=== PATIENT | female | born 1995 | race Caucasian/White ===

== ENCOUNTER 2018-05-06 22:42 | Emergency (ER) | payer MEDICAID, SELFPAY ==
[2018-05-06 22:44] VITALS: BP 105/65; PULSE 73; RESP 14; TEMP 36.4; O2SAT 99; BMI 20.4
--- NOTE | 2018-05-07 00:36 | US_ITS ---
STUDY: FIRST TRIMESTER OBSTETRICAL ULTRASOUND REASON FOR EXAM: Female, 22 years old. patient with cramping and low back pain for one week. LMP: The colon TECHNIQUE: Transvaginal PRIOR ULTRASOUND: None. FINDINGS: There is visualization of a single gestational sac in a normal intrauterine position. The mean sac diameter (MSD) measures 3.9 cm, indicating an estimated gestational age (EGA) of 8 weeks, 2 days. The gestational sac shape is within normal limits. There is a hypoechoic area adjacent to the gestational sac measuring about 2.5 cm consistent with subchorionic hemorrhage. There is a visualized yolk sac. The yolk sac measures 5.4 mm. The placenta is non-visualized. There is visualization of a live embryo. The crown-rump length (CRL) measures 21 mm, indicating an estimated gestational age (EGA) of 8 weeks, 5 days. There is demonstrated cardiac activity with a heart rate of 151 bpm. The estimated gestation age (EGA) by LMP is unknown. The estimated gestation age (EGA) by US is 8 weeks, 4 days. The estimated date of delivery (MARCO A) by US is 12/13/2018. The uterus measures 9.8 x 7.7 x 5.6 cm. There is no demonstrated uterine fibroid. The cervix is closed. The right ovary measures 3.1 x 2.9 x 1.7 cm. There is no right ovarian cyst. There is no visualized right adnexal mass or complex lesion. The left ovary measures 2.7 x 2.6 x 1.6 cm. There is a small cyst/prominent follicle in the left ovary measuring about 1.5 cm. There is no visualized left adnexal mass or complex lesion. There is no fluid in the cul de sac. US/Transvaginal w/Preg US IMPRESSION: Single live intrauterine fetus with an estimated gestational age of 8 weeks and 4 days. MARCO A is 12/13/2018. Subchorionic hemorrhage. Close follow-up examination is recommended. Electronically Signed: George Roland MD at 2:58 EDT Tel , Service support ,
--- NOTE | 2018-05-07 00:39 | ED.VISSUMM ---
- ER Visit Summary Date of Service: 05/07/18 Chief Complaint: Abdominal pain History of Present Illness: The patient is a 22 F with abdominal pain. She is 9 weeks . She is not sure if she had an ultrasound for this . She denies any bleeding or discharge. Denies any urinary symptoms. Denies any other GI symptoms. Denies any fevers. Physical Examination: Afebrile and vital signs unremarkable. Alert and oriented. No acute distress. Skin appears normal. Heart regular. Lungs clear. Back nontender. Abdomen is tender in the left lower quadrant and left pelvic region. No guarding or rebound. Test Results: We will check labs, urinalysis, and ultrasound. Emergency Department Course and Treatment: Treated with morphine while awaiting results of labs, urine, and ultrasound. Hemoglobin 11.2. Chem panel normal. Signs of urinary tract infection. Ultrasound showed a live intrauterine 8 weeks 4 days. There is a subchorionic hemorrhage. Close follow-up is recommended. Patient was prescribed Macrobid. Follow-up with OB tomorrow. Treatment Plan: As above Disposition: Discharged Impression: 1. 2. Pelvic pain 3. UTI This note was generated with [employer] software. It may contain incorrect words, spelling, and punctuation that were not noted in review of the chart prior to signing ED Disposition - Plan for ED Patient: Chief Complaint: Referrals: Care Physician,No Primary [Primary Care Provider] -
[2018-05-07 01:21] LABS: Bacteria 0 SEEN /hpf (None Seen); Mucous, Urine 0 SEEN /hpf (<or=2+); Red Blood Cells-Urine 0 SEEN /hpf (0-5)
[2018-05-07 01:24] LABS: Absolute Lymphocyte Count 2.25 X10^3/ul (0.83-4.51); Absolute Neutrophil Count 6.5 X10^3/uL (2.0-7.7); Basophil# 0.02 X10^3/uL; Basophil% 0.2 % (0-1); Color, Urine Yellow (Yellow); Eosinophil# 0.14 X10^3/uL; Eosinophils% 1.5 % (0-5); Glucose, Dipstick Normal (Normal); Hematocrit 32.8 % (37-47); Hemoglobin 11.2 g/dl (12.0-15.0); Ketone-Dipstick 5 mg/dl (Negative); Leukocyte Esterase-Dipstick 100 /ul (Negative); Lymphocyte # 2.25 X10^3/ul (4.0); Lymphocyte % 23.4 % (19-41); Mean Corp Hgb Conc 34.1 g/gl (32-36); Mean Corpuscular Hgb 29.6 pg (27.0-32.0); Mean Corpuscular Volume 86.5 fL (81-99); Mean Platelet Vol. 11.3 fl (6.2-12.0); Monocyte# 0.67 X10^3/uL; Neutrophil # 6.54 X10^3/uL (2.7-7.7); Neutrophil % 67.8 % (47-70); Nitrite-Dipstick Negative (Negative); Occult Blood-Urine Negative /ul (Negative); Platelet Count 207 K/mm3 (150-450); Protein-Dipstick 15 mg/dl (Negative); RBC Distribution Width CV 13.3 % (11.6-14.6); Red Blood Count 3.79 M/mm3 (4.2-5.4); Specific Gravity, Urine 1.025 (1.002-1.030); Urine Clarity Sl. Cloudy (Clear); Urine Urobilinogen 4 mg/dl (Normal); Urine pH 6.5 (5.0 - 8.0); White Blood Count 9.6 K/mm3 (4.4-11.0)
[2018-05-07 01:26] LABS: Urine Bilirubin Dipstick 1 mg/dL (Negative)
[2018-05-07 01:30] LABS: Squamous Epithelial Cells - UA > 100 SEEN /hpf (5-10)
[2018-05-07 01:31] LABS: Amorphous Sediment 1+; POSITIVE COUNT NO; POSITIVE DIFFERENTIAL NO; POSITIVE MORPHOLOGY NO; White Blood Cells 10-25 SEEN /hpf (0-5)
[2018-05-07] MEDS: Morphine 4 MG/ML Syringe IV (01:37)
[2018-05-07 01:53] LABS: Anion Gap 4 (5-15); BUN 6 mg/dL (7-18); BUN/Creat Ratio 8.5 RATIO (10-20); Calcium,Total 8.3 mg/dL (8.5-10.1); Chloride 109 mmol/L (98-107); Creatinine, Serum 0.71 mg/dL (0.55-1.02); EST Glomerular Filtration Rate 107 mL/min (>60); Est Glom Filt Rate - Afr Amer 130 mL/min (>60); Glucose 97 mg/dL (74-106); Potassium 3.5 mmol/L (3.5-5.1); Sodium Level 139 mmol/L (136-145)
[2018-05-07 02:08] LABS: hCG Titer Quant., Serum 91873 mIU/mL (<9 non-preg)
--- NOTE | 2018-05-07 03:52 | ED.DEP ---
ED Disposition - Plan for ED Patient: Chief Complaint: Instructions: ED UTI Cystitis Female Prescriptions: Nitrofurantoin Macrocrystals [Macrobid] 100 mg PO Q12 #14 cap Referrals: Care Physician,No Primary [Primary Care Provider] -
[2018-05-07 04:03] VITALS: BP 117/80; PULSE 81; RESP 18; O2SAT 97
== END 2018-05-07 04:05 | disposition home or self-care (01) ==
PROVIDERS: Emergency Provider Emergency Medicine
DX: O23.41 Unspecified infection of urinary tract in pregnancy, first trimester (principal); O26.891 Other specified pregnancy related conditions, first trimester; R10.2 Pelvic and perineal pain; O99.331 Smoking (tobacco) complicating pregnancy, first trimester; Z3A.09 9 weeks gestation of pregnancy
CPT/HCPCS: 76817; 80048; 81001; 84702; 85025; 96374; 99283; A4216

== ENCOUNTER 2018-06-13 23:54 | Emergency (ER) | payer MEDICAID, SELFPAY ==
[2018-06-13 23:55] VITALS: BP 90/49; PULSE 86; RESP 16; TEMP 37; O2SAT 100; BMI 18.8
[2018-06-14] MEDS: Dicyclomine 10 MG Capsule 20 MG PO (00:41)
[2018-06-14] MEDS: Ondansetron ODT 4 MG Tablet 8 MG PO (00:41)
--- NOTE | 2018-06-14 01:32 | ED.DCSUM_ITS ---
History of Present Illness Chief Complaint: Abd Pain Informant: Patient Onset: Days - 2 Context: Gradual Onset Timing: Intermittent Quality: sharp Location: periumbilical abd Current Severity: Moderate Maximum Severity: Moderate Worsened by: nothing Relieved by: nothing Associated Symptoms: nausea. nonbloody nonmelanotic diarrhea 2x/day. no fevers, vomiting. Narrative: Patient states she is 2 months . She had an ultrasound in the ER here during her visit last month. She had a positive home test and in [facility] in addition to her ER visit here. The ultrasound she had showed a single live intrauterine . She has had no vaginal discharge, bleeding, or other vaginal symptoms. No urinary symptoms. No recent antibiotics or suspicious food ingestion. No known sick contacts with similar. Past Medical History - Allergies and Home Meds Allergies/Adverse Reactions: Allergies cefuroxime axetil [From Ceftin] Allergy (Verified 05/06/18 22:47) Hives pseudoephedrine HCl [From Sudafed] Allergy (Verified 05/06/18 22:47) Other Primary Care Physician: Care Physician,No Primary [Primary Care Provider] - Past Medical History: None Surgical History: no surgical history Smoking Status: Current every day smoker Drugs: None Review of Systems All systems negative except as indicated General: Reports: Malaise. Denies: Chills, Fever Gastrointestinal: Reports: Abdominal pain, Nausea, Diarrhea. Denies: Vomiting, Melena, Hematochezia Genitourinary: Denies: Dysuria, Hematuria, Frequency Musculoskeletal: Denies: Myalgias, Arthralgias Skin: Denies: Rash Physical Exam Vital Signs/Narrative: Vital Signs Temp Pulse Resp BP Pulse Ox 06/13/18 23:55 98.6 F 86 16 90/49 L 100 Inital Vital Signs reviewed: Yes General: Well nourished, Well developed Head: Normocephalic, Atraumatic Eyes: Perrl, EOMI ENT: Moist mucous membranes, No rhinorrhea Cardiovascular: Regular rate, Regular rhythm, No murmurs Respiratory: No distress, CTA bilaterally, Chest nontender Abdomen: Soft, Nondistended, Normal bowel sounds, No masses, Tender - epigastric , periumbilical, and throughout lower abd. Negative for: Guarding, Rebound tenderness Back: Nontender, Normal Inspection. Negative for: CVA tenderness Extremities: Nontender, No edema Skin: Normal color, No rash Neurological: Alert, Oriented x3, Cranial nerves II-XII grossly intact, Normal Strength, Normal Sensation, Normal Gait Psychological: Normal affect Diagnostic/Tx/Re-eval - Medical Decision Making Patient states she has been drinking plenty of fluids and appears hydrated with normal vital signs. I reviewed her ultrasound from about 5 weeks ago, she had a single live intrauterine that was around 8-8.5 weeks at that time. She was notified that she is probably 13-14 weeks , no further workup for that is necessary at this time I do not think she has an ectopic . She was given Zofran and Bentyl and felt a lot better so she was given prescriptions for both, which should be safe during , advised to follow -up. Also given a prescription for vitamins. ED Disposition - Plan for ED Patient: Disposition: Home or Assisted Living Chief Complaint: Abd Pain Diagnosis: Enteritis, First trimester Instructions: ED Diarrhea Viral Prescriptions: Ondansetron [Zofran Odt] 8 mg PO Q8H PRN PRN #12 tab PRN Reason: Nausea Dicyclomine HCl [Bentyl] 20 mg PO TIDAC PRN #20 cap PRN Reason: abdominal pain Vit No.130/Iron/FA [ Vitamins] 1 ea PO DAILY #30 tab Referrals: Care Physician,No Primary [Primary Care Provider] - Raj Ramesh III, MD [STAFF PHYSICIAN] - 3-5 Days if not improving Hue Neri [STAFF PHYSICIAN] - (for [employer])
[2018-06-14 01:36] VITALS: RESP 14
== END 2018-06-14 01:37 | disposition home or self-care (01) ==
PROVIDERS: Emergency Provider Emergency Medicine
DX: O26.891 Other specified pregnancy related conditions, first trimester (principal); K52.9 Noninfective gastroenteritis and colitis, unspecified; Z3A.13 13 weeks gestation of pregnancy; O99.331 Smoking (tobacco) complicating pregnancy, first trimester
CPT/HCPCS: 99282

== ENCOUNTER 2018-07-04 18:50 | Emergency (ER) | payer OTHER, SELFPAY ==
[2018-07-04 18:51] VITALS: BP 98/61; PULSE 91; RESP 16; TEMP 36.8; O2SAT 100; BMI 20.5
--- NOTE | 2018-07-04 19:40 | ED.VISSUMM ---
- ER Visit Summary Date of Service: 07/04/18 Chief Complaint: [Back and abdomen injury] History of Present Illness: The patient is a 22 F [presents the emergency department complaint of pain in her back and abdomen after sustaining an injury at work. Patient states that she was lifting a tote of O-rings when she felt sudden onset of pain in her left low back and lower left abdomen. Patient is 12 weeks . Patient denies any vaginal bleeding. Patient complains of pain with movement. She denies any pain radiating down the legs. She denies any change in bowel or bladder function.] Physical Examination: [HEENT-PERRLA, EOMI. Cranial nerves II through XII grossly intact. TMs clear. Mucous membranes moist. No adenopathy. Cardiovascular-regular rate and rhythm without murmur or ectopy Lungs-clear to auscultation, chest wall stable without crepitus or subcu emphysema Abdomen-normoactive bowel sounds, soft. Patient does have tenderness palpation over left lower quadrant and left abdominal wall obliques. Patient has no real tenderness over the uterus and she is gravid. Back exam-patient has tenderness over the left lumbar paraspinal musculature. No real tenderness in the midline. She has negative straight leg raises. Patient has normal deep tendon reflexes of plus out of 4 bilaterally. Normal sensation light touch Extremities-intact ?4, normal range of motion, normal pulses, atraumatic] Test Results: [None indicated] Emergency Department Course and Treatment: [Patient refused any medication the emergency department] Treatment Plan: [Patient advised use Tylenol for discomfort and she was given work restrictions] Disposition: [Discharged home in stable condition] Impression: [Lumbar strain Abdominal wall strain] This note was generated with [employer] dictation software. It may contain incorrect words, spelling, and punctuation that were not noted in review of the chart prior to signing ED Disposition - Plan for ED Patient: Chief Complaint: Other, Pain/Inj Referrals: Care Physician,No Primary [Primary Care Provider] -
--- NOTE | 2018-07-04 19:43 | ED.DEP ---
ED Disposition - Plan for ED Patient: Chief Complaint: Other, Pain/Inj Instructions: ED Sprain Strain Lumbar, ED Strain Abdominal Muscle Referrals: Care Physician,No Primary [Primary Care Provider] - Corporate,[facility] [GROUP OF PHYSICIANS] - 3-5 Days
== END 2018-07-04 19:51 | disposition home or self-care (01) ==
PROVIDERS: Emergency Provider Emergency Medicine
DX: O9A.211 Injury, poisoning and certain other consequences of external causes complicating pregnancy, first trimester (principal); S39.012A Strain of muscle, fascia and tendon of lower back, initial encounter; S39.011A Strain of muscle, fascia and tendon of abdomen, initial encounter; X50.9XXA Other and unspecified overexertion or strenuous movements or postures, initial encounter; Y93.89 Activity, other specified; Y92.9 Unspecified place or not applicable; Y99.0 Civilian activity done for income or pay; O99.331 Smoking (tobacco) complicating pregnancy, first trimester; Z3A.12 12 weeks gestation of pregnancy
CPT/HCPCS: 99282

== ENCOUNTER 2018-09-16 23:14 | Emergency (ER) | payer MEDICAID, SELFPAY ==
[2018-09-16 23:15] VITALS: BP 110/55; PULSE 93; RESP 18; TEMP 37; O2SAT 97; BMI 23.3
[2018-09-16 23:27] VITALS: RESP 16
--- NOTE | 2018-09-16 23:27 | ED.DCSUM_ITS ---
- ER Visit Summary Date of Service: 09/16/18 Chief Complaint: Tooth chipping History of Present Illness: The patient is a 23 F with right-sided dental problems for the last 9 months or so. Tonight one tooth keeps chipping and is painful. She took Tylenol approximately 30 minutes prior to arrival. She sta shahnaz she is going to see her dentist tomorrow as a walk-in to get him to do something with her tooth. She is currently 7 months . Physical Examination: Vital signs unremarkable. Patient standing at bedside no acute distress. Head neck examination was no facial edema or erythema. Intraoral examination reveals right mandibular second premolar to be broken and decayed. There is minimal gum edema. There is no trismus. Uvula is midline. Her upper teeth of all previously been pulled. Remainder of exam is unremarkable other than gravid uterus. Test Results: [] Emergency Department Course and Treatment: Patient did take Tylenol just before arrival. She is attempted continue this every 6 hours. She will be given Pen- Vee K, first dose given here. Treatment Plan: [] Disposition: Discharge Impression: Odontalgia This note was generated with [employer] dictation software. It may contain incorrect words, spelling, and punctuation that were not noted in review of the chart prior to signing ED Disposition - Plan for ED Patient: Chief Complaint: Dental Referrals: Care Physician,No Primary [Primary Care Provider] -
--- NOTE | 2018-09-16 23:27 | ED.DEP ---
ED Disposition - Plan for ED Patient: Disposition: Home or Assisted Living Chief Complaint: Dental Instructions: ED Tooth Pain Prescriptions: Penicillin V Potassium 500 mg PO 4X/DAY #40 tablet Additional Instructions: Follow-up with your dentist as soon as possible.
[2018-09-16] MEDS: Penicillin Vk 250 MG Tablet 500 MG PO (23:35)
[2018-09-16 23:38] VITALS: BP 106/52; PULSE 94; RESP 16; O2SAT 98
== END 2018-09-16 23:39 | disposition home or self-care (01) ==
LOC: ED 23:36
PROVIDERS: Emergency Provider Emergency Medicine
DX: O99.613 Diseases of the digestive system complicating pregnancy, third trimester (principal); S02.5XXA Fracture of tooth (traumatic), initial encounter for closed fracture; K02.9 Dental caries, unspecified; X58.XXXA Exposure to other specified factors, initial encounter; Y93.9 Activity, unspecified; Y92.9 Unspecified place or not applicable; Y99.9 Unspecified external cause status; O99.333 Smoking (tobacco) complicating pregnancy, third trimester; Z3A.00 Weeks of gestation of pregnancy not specified
CPT/HCPCS: 99282

== ENCOUNTER 2018-09-29 20:30 | Outpatient (CLI) | payer MEDICAID, SELFPAY ==
[2018-09-29 21:16] VITALS: BMI 23.3
[2018-09-29 21:23] LABS: Color, Urine Yellow (Yellow); Glucose, Dipstick Normal (Normal); Ketone-Dipstick Negative (Negative); Leukocyte Esterase-Dipstick 500 /ul (Negative); Nitrite-Dipstick Negative (Negative); Occult Blood-Urine 10 /ul (Negative); Protein-Dipstick 15 mg/dl (Negative); Specific Gravity, Urine 1.015 (1.002-1.030); Urine Bilirubin Dipstick Negative (Negative); Urine Clarity Sl. Cloudy (Clear); Urine Urobilinogen 1 mg/dl (Normal); Urine pH 6.5 (5.0 - 8.0)
[2018-09-29 21:30] LABS: Hematocrit 28.2 % (37-47); Hemoglobin 9.6 g/dl (12.0-15.0); Mean Corpuscular Hgb 29.3 pg (27.0-32.0); Mean Platelet Vol. 10.9 fl (6.2-12.0); Platelet Count 213 K/mm3 (150-450); RBC Distribution Width CV 13.5 % (11.6-14.6); RBC Distribution Width SD 41.3 fl (35.1-43.9); Red Blood Count 3.28 M/mm3 (4.2-5.4); White Blood Count 9.7 K/mm3 (4.4-11.0)
[2018-09-29 21:34] LABS: Scan Indicated on CBC? Y/N NO
[2018-09-29 21:40] LABS: White Blood Cells 50-100 SEEN /hpf (0-5)
[2018-09-29 21:41] LABS: Bacteria 2+ /hpf (None Seen); Mucous, Urine RARE /hpf (<or=2+); Red Blood Cells-Urine 5-10 SEEN /hpf (0-5); Squamous Epithelial Cells - UA 25-50 SEEN /hpf (5-10); Trichomonas 0-5 SEEN /hpf (None Seen)
[2018-09-29 21:44] LABS: ALB/GLOB Ratio 0.7 RATIO (0.9-2.4); AST(SGOT) 16 U/L (15-37); Alanine Aminotransfer ALT/SGPT 16 U/L (13-56); Albumin, Serum 2.4 g/dL (3.2-5.0); Alkaline Phosphatase 111 U/L (45-117); Anion Gap 9 (5-15); BUN 10 mg/dL (7-18); Calcium,Total 7.8 mg/dL (8.5-10.1); Chloride 109 mmol/L (98-107); Creatinine, Serum 0.56 mg/dL (0.55-1.02); EST Glomerular Filtration Rate 142 mL/min (>60); Est Glom Filt Rate - Afr Amer 171 mL/min (>60); Estimated Creatinine Clearance 115.88 ml/min; Globulin 3.5 g/dL (2.2-4.2); Glucose 88 mg/dL (74-106); Potassium 2.9 mmol/L (3.5-5.1); Protein, Total 5.9 g/dL (6.4-8.2); Sodium Level 139 mmol/L (136-145)
[2018-09-29] MEDS: Ondansetron ODT 4 MG Tablet PO (22:21)
--- NOTE | 2018-12-06 15:46 | OB.TRI.HP_ITS ---
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 Allergies cefuroxime axetil [From Ceftin] Allergy (Verified 09/16/18 23:17) Hives pseudoephedrine HCl [From Sudafed] Allergy (Verified 09/16/18 23:17) Other Laboratory Studies: Laboratory Tests 09/29/18 09/29/18 09/29/18 Range/Units 21:10 21:10 21:00 WBC 9.7 (4.4-11.0) K/mm3 RBC 3.28 L (4.2-5.4) M/mm3 Hgb 9.6 L (12.0-15.0) g/dl Hct 28.2 L (37-47) % MCV 86.0 (81-99) fL MCH 29.3 (27.0-32.0) pg MCHC 34.0 (32-36) g/gl RDW 13.5 (11.6-14.6) % RDW Differential 41.3 (35.1-43.9) fl Plt Count 213 (150-450) K/mm3 MPV 10.9 (6.2-12.0) fl Sodium 139 (136-145) mmol/L Potassium 2.9 L (3.5-5.1) mmol/L Chloride 109 H (98-107) mmol/L Carbon Dioxide 21.0 (21.0-32.0) mmol/L Anion Gap 9 (5-15) BUN 10 (7-18) mg/dL Creatinine 0.56 (0.55-1.02) mg/dL Estim Creat Clear Calc 115.88 ml/min Est GFR (MDRD) Af Amer 171 (>60) mL/min Est GFR (MDRD) Non-Af 142 (>60) mL/min BUN/Creatinine Ratio 18.0 (10-20) RATIO Glucose 88 (74-106) mg/dL Calcium 7.8 L (8.5-10.1) mg/dL Total Bilirubin 0.20 (0.20-1.00) mg/dL AST 16 (15-37) U/L ALT 16 (13-56) U/L Alkaline Phosphatase 111 (45-117) U/L Total Protein 5.9 L (6.4-8.2) g/dL Albumin 2.4 L (3.2-5.0) g/dL Globulin 3.5 (2.2-4.2) g/dL Albumin/Globulin Ratio 0.7 L (0.9-2.4) RATIO Urine Color Yellow (Yellow) Urine Clarity Sl. Cloudy (Clear) Urine pH 6.5 (5.0 - 8.0) Ur Specific [place] 1.015 (1.002-1.030) Urine Protein 15 H (Negative) mg/dl Urine Glucose (UA) Normal (Normal) mg/dl Urine Ketones Negative (Negative) mg/dl Urine Occult Blood 10 H (Negative) /ul Urine Nitrite Negative (Negative) Urine Bilirubin Negative (Negative) mg/dL Urine Urobilinogen 1 H (Normal) mg/dl Ur Leukocyte Esterase 500 H (Negative) /ul Urine RBC 5-10 SEEN (0-5) /hpf Urine WBC 50-100 SEEN (0-5) /hpf Ur Squamous Epith Cells 25-50 SEEN (5-10) /hpf Urine Bacteria 2+ (None Seen) /hpf Urine Mucus RARE (<or=2+) /hpf Urine Trichomonas 0-5 SEEN (None Seen) /hpf Impression/Plan 1. False Labor - FHR reassuring 2. Anemia Plan: RTHosp for timeable contractions. Keep clinic appt.
== END 2018-09-29 22:15 | disposition home or self-care (01) ==
LOC: WPOUT 20:46 → WP 20:47
PROVIDERS: Referring Provider Obstetrics & Gynecology Gynecology; Visit Provider Obstetrics & Gynecology Gynecology
DX: O47.9 False labor, unspecified (principal); O99.019 Anemia complicating pregnancy, unspecified trimester; D64.9 Anemia, unspecified; Z3A.00 Weeks of gestation of pregnancy not specified
CPT/HCPCS: 36415; 59025; 59050; 80053; 81001; 85027; 87086; 99218; G0378

== ENCOUNTER 2019-01-29 19:27 | Emergency (ER) | payer MEDICAID, SELFPAY ==
[2019-01-29 19:28] VITALS: BP 90/70; PULSE 90; RESP 15; TEMP 36.8; O2SAT 99; BMI 20.7
--- NOTE | 2019-01-29 19:38 | EKG12_ITS ---
Test Reason : CHEST DISCOMFORT Blood Pressure : / mmHG Vent. Rate : 080 BPM Atrial Rate : 080 BPM P-R Int : 102 ms QRS Dur : 086 ms QT Int : 398 ms P-R-T Axes : 045 053 034 degrees QTc Int : 459 ms Sinus rhythm with short RI Otherwise normal ECG Confirmed by FRIDA VALENZUELA, CAPRICE ([id number]), magazine editor STACEY MATT ([id number]) on 01/31/2019 8:54:14 AM Referred By: MERLINE Confirmed By:CAPRICE GALICIA MD
--- NOTE | 2019-01-29 22:09 | ED.DEP ---
ED Disposition - Plan for ED Patient: Instructions: ED Hyperventilation Syndrome Referrals: Ann-Marie Klein MD [STAFF PHYSICIAN] -
--- NOTE | 2019-01-29 22:23 | ED.VISSUMM ---
- ER Visit Summary Date of Service: 01/29/19 Chief Complaint: Facial tingling, epigastric pain History of Present Illness: The patient is a 23 F presenting with facial tingling and epigastric pain. Patient states this started 2 hours ago. She had tingling on both sides of her face. This has now resolved. She states that at the time she also had epigastric pain. States this is also resolved. She is sitting in the bed eating [employer]. She denies nausea, vomiting, diarrhea. Denies urinary complaints. Denies fever. Denies other symptoms. Physical Examination: Vitals are stable. Patient is afebrile. Alert no acute distress. HEENT exam is unremarkable. Neck is supple. Lungs are clear and equal bilaterally. Heart is regular rate and rhythm. Abdomen is soft nontender nondistended. No guarding or rebound Extremities are unremarkable. Skin is warm and dry. No focal neurologic deficit. Remainder of exam is unremarkable. Emergency Department Course and Treatment: Patient is asymptomatic. She is comfortable with discharge home. She is advised to follow-up with primary care physician. Advised return to ED for any worsening complaints. Disposition: Discharge home Impression: Paresthesia, resolved; epigastric pain, resolved This note was generated with [employer] dictation software. It may contain incorrect words, spelling, and punctuation that were not noted in review of the chart prior to signing ED Disposition - Plan for ED Patient: Instructions: ED Hyperventilation Syndrome Referrals: Ann-Marie Klein MD [STAFF PHYSICIAN] -
--- NOTE | 2019-01-29 22:26 | ED.DCSUM_ITS ---
- ER Visit Summary Date of Service: 01/29/19 Chief Complaint: Facial tingling, epigastric pain History of Present Illness: The patient is a 23 F presenting with facial tingling and epigastric pain. Patient states this started 2 hours ago. She had tingling on both sides of her face. This has now resolved. She states that at the time she also had epigastric pain. States this is also resolved. She is sitting in the bed eating [employer]aco [employer]. She denies nausea, vomiting, diarrhea. Denies urinary complaints. Denies fever. Denies other symptoms. Physical Examination: Vitals are stable. Patient is afebrile. Alert no acute distress. HEENT exam is unremarkable. Neck is supple. Lungs are clear and equal bilaterally. Heart is regular rate and rhythm. Abdomen is soft nontender nondistended. No guarding or rebound Extremities are unremarkable. Skin is warm and dry. No focal neurologic deficit. Remainder of exam is unremarkable. Emergency Department Course and Treatment: Patient is asymptomatic. She is comfortable with discharge home. She is advised to follow-up with primary care physician. Advised return to ED for any worsening complaints. Disposition: Discharge home Impression: Paresthesia, resolved; epigastric pain, resolved This note was generated with [employer] dictation software. It may contain incorrect words, spelling, and punctuation that were not noted in review of the chart prior to signing ED Disposition - Plan for ED Patient: Instructions: ED Hyperventilation Syndrome Referrals: Ann-Marie Klein MD [STAFF PHYSICIAN] -
[2019-01-29 22:41] VITALS: PULSE 100; RESP 18; O2SAT 99
== END 2019-01-29 22:42 | disposition home or self-care (01) ==
LOC: ED 22:09
PROVIDERS: Emergency Provider Emergency Medicine
DX: R20.2 Paresthesia of skin (principal); R10.13 Epigastric pain; Z72.0 Tobacco use
CPT/HCPCS: 93005; 99282

== ENCOUNTER 2019-03-25 12:32 | Emergency (ER) | payer MEDICAID, SELFPAY ==
[2019-03-25 12:33] VITALS: BP 94/56; PULSE 89; RESP 15; TEMP 36.1; O2SAT 97; BMI 20.7
--- NOTE | 2019-03-25 12:59 | ED.VIS.GEN ---
History of Present Illness Chief Complaint: Cellulitis Detail of Chief Complaint: Infected finger Informant: Patient Onset: Yesterday Context: Sudden Onset Timing: Continuous Quality: Pain Location: Right little finger Current Severity: Mild Maximum Severity: Moderate Worsened by: Biting her nails Relieved by: Nothing Associated Symptoms: Infection of skin Narrative: Patient is a 23-year-old [id number] woman who presents with infection right little finger after biting her nails. She presents because of pain, swelling and redness on the radial side of the right little finger. She is not immune suppressed. She denies a traumatic fever, SPE, murmur. Prior similar symptoms: No Recent Illness/Hospitalization: No Past Medical History - Allergies and Home Meds Allergies/Adverse Reactions: Allergies cefuroxime axetil [From Ceftin] Allergy (Verified 03/25/19 12:36) Hives pseudoephedrine HCl [From Sudafed] Allergy (Verified 03/25/19 12:36) Other Primary Care Physician: Care Physician,No Primary [Primary Care Provider] - Prior records reviewed: No Surgical History: no surgical history Lives: Spouse/ Significant Other, With Family Smoking Status: Current every day smoker Review of Systems General: Denies: Chills, Fever, Malaise, Sweats Skin: Reports: Rash, Abscess, Wounds. Denies: Abrasions Hematologic: Denies: Easy bruising, Easy bleeding Allergy: Denies: Uticaria, Swelling of the mouth Physical Exam Vital Signs/Narrative: Vital Signs Temp Pulse Resp BP Pulse Ox 03/25/19 12:33 96.9 F L 89 15 94/56 L 97 Diagnostic/Tx/Re-eval - Medical Decision Making Patient has a paronychia secondary to biting her nails. Please read procedure note Procedures Procedure(s): Right little finger was anesthetized by digital block. Patient has evidence of infection right little finger. Findings are consistent with a paronychia. The paronychia was opened with an 11 blade. Patient tolerated procedure. Minimal amount of drainage noted. ED Disposition - Plan for ED Patient: Disposition: Home or Assisted Living Diagnosis: Paronychia of finger of right hand Instructions: ED Fingernail Infec Referrals: Care Physician,No Primary [Primary Care Provider] - Additional Instructions: Follow-up with Dr. bonilla were assigned to. Your doctor's name is on your insurance card, care source
== END 2019-03-25 14:27 | disposition home or self-care (01) ==
PROVIDERS: Emergency Provider Emergency Medicine
DX: L03.011 Cellulitis of right finger (principal); F17.200 Nicotine dependence, unspecified, uncomplicated
CPT/HCPCS: 10060; 99282

== ENCOUNTER 2019-07-18 00:55 | Emergency (ER) | payer MEDICAID, SELFPAY ==
[2019-07-18 00:56] VITALS: BP 92/60; PULSE 76; RESP 16; TEMP 36.6; O2SAT 100; BMI 19.6
[2019-07-18 01:00] VITALS: RESP 16
--- NOTE | 2019-07-18 01:04 | ED.VIS.GEN ---
History of Present Illness Chief Complaint: Wound Informant: Patient Onset: Days - 1 Narrative: Increased swelling right upper arm. Started yesterday, increased size of draining pus today. No fevers. Denies IV drug use. Couple young injury in the area reports a burn from her work. No previous similar symptoms in the past. Prior similar symptoms: No Past Medical History - Allergies and Home Meds Allergies/Adverse Reactions: Allergies cefuroxime axetil [From Ceftin] Allergy (Verified 07/18/19 00:59) Hives pseudoephedrine HCl [From Sudafed] Allergy (Verified 07/18/19 00:59) Other Primary Care Physician: Care Physician,No Primary [Primary Care Provider] - Surgical History: no surgical history Smoking Status: Current every day smoker Review of Systems General: Denies: Chills, Fever, Sweats Eyes: Denies: Visual changes - bilaterally, Diplopia ENT: Denies: Rhinorrhea, Sore throat Cardiovascular: Denies: Chest pain, Palpitations Respiratory: Denies: Dyspnea, Cough, Dyspnea on exertion Gastrointestinal: Denies: Abdominal pain, Nausea, Vomiting, Diarrhea, Melena, Hematochezia Genitourinary: Denies: Dysuria, Hematuria, Frequency Musculoskeletal: Denies: Back pain, Extremity Pain Skin: Reports: Wounds. Denies: Rash Neurological: Denies: Headache, Weakness, Numbness Physical Exam Vital Signs/Narrative: Vital Signs Temp Pulse Resp BP Pulse Ox 07/18/19 01:00 16 07/18/19 00:56 97.8 F 76 16 92/60 100 Inital Vital Signs reviewed: Yes General: Well nourished, Well developed, No Acute Distress Head: Normocephalic, Atraumatic Eyes: Perrl, EOMI ENT: Moist mucous membranes, No rhinorrhea Neck: Supple, Nontender Cardiovascular: Regular rate, Regular rhythm, No murmurs Respiratory: No distress, CTA bilaterally, Chest nontender Abdomen: Soft, Nontender, Nondistended, Normal bowel sounds Back: Nontender, Normal Inspection Extremities: Nontender, No edema Skin: No rash, - - Right upper extremity: Antecubital region. Superior to this notes 1 cm fluctuance with clear drainage, there is no opening. No induration. Small nodule antecubital, with no erythema. Nontender. Healing horizontal scab 2 cm and subcu and 1.5 cm lateral upper arm, no surrounding erythema, nontender. Neurological: Alert, Oriented x3, Cranial nerves II-XII grossly intact, Normal Strength, Normal Sensation Psychological: Normal affect, Normal Mood Diagnostic/Tx/Re-eval - Medical Decision Making Patient vitals stable, exam concerns for boil, there is fluctuance. Small region, discussed with patient for incision and drainage to help with continued drainage. There is no active opening at on exam. Patient denies any IV drug use. Area incised and drained, wound care discussed. Started on Bactrim. Follow-up given. Signs and symptoms discussed return. All questions were answered. Procedure note: Verbal consent. Normal sterile conditions, local analgesia of lidocaine 1% without epinephrine 2 cc, Betadine preparation, 11 blade for small cruciate incision, hemostats placed, pocket was palpated, no exudates, dark blood, controlled. Copious flushing with normal saline at 100 cc. Dressing placed. Patient tolerated procedure well. ED Disposition - Plan for ED Patient: Disposition: Home or Assisted Living Diagnosis: Boil of upper extremity Instructions: ABSCESS, Incision and Drainage Prescriptions: Smz/Tmp Ds [Bactrim Ds] 1 tablet PO BID #14 tablet Referrals: Care Physician,No Primary [Primary Care Provider] - Cici Parnell [NON-STAFF] - 5-7 Days
[2019-07-18] MEDS: Smz/Tmp Ds Tablet 1 TABLET PO (01:09)
[2019-07-18 01:40] VITALS: RESP 16
== END 2019-07-18 01:44 | disposition home or self-care (01) ==
PROVIDERS: Emergency Provider Emergency Medicine
DX: L02.423 Furuncle of right upper limb (principal); Z88.1 Allergy status to other antibiotic agents; F17.200 Nicotine dependence, unspecified, uncomplicated
CPT/HCPCS: 10060; 99283

== ENCOUNTER 2021-07-21 20:25 | Emergency (ER) | payer MEDICAID, SELFPAY ==
[2021-07-21 20:26] VITALS: BP 101/58; PULSE 96; RESP 18; TEMP 36.9; O2SAT 98; BMI 18.8
--- NOTE | 2021-07-21 20:57 | CM.ED ---
SW Note Referral Source: Case Find Referral Reason: No Primary Care Physician (PCP) SW reviewed chart and noted that patient has no PCP. SW provided patient with list of [facility] and [facility] Physician List for reference. SW also provided patient with handout ?Where to go When?. No other issues or concerns voiced at this time. SW remains available for any additional needs. Patient said any one of these will take my insurance. SW explained that generally big hospital systems or networks take [employer] insurance. Patient said I tried. Patient said I got my boys a primary and all I need is treatment for this earache and I will be fine until next time. Patient was advised that [facility] has a nurse and patient said I tried and they gave me numbers that don't work. Plan: Provided patient with PCP information Lisa DE PAZ
--- NOTE | 2021-07-21 21:10 | EX.ED.VIS.UR ---
HPI HPI - URI History of Present Illness Chief Complaint: Ear Problem Narrative Narrative: Patient presents with left ear pain that she has had for 2 days. She states that she is recently gotten over her head cold. She denies any fever or chills. She states she gets frequent ear infections. She is a smoker. She has constant pain and mild loss of hearing. This is similar to her prior ear infections. No exacerbating or alleviating factors. Prior similar symptoms: Yes ROS ROS ED ROS Narrative Constitutional: No fever, no chills. HEENT: No sore throat. No neck pain. No loss of vision. No rhinorrhea. Left ear pain. Minimal loss of hearing. Cardiovascular: No chest pain. No palpitations. No pedal edema. Respiratory: No cough, no shortness of breath. Abdominal: No abdominal pain. No nausea. No vomiting. Genitourinary: No dysuria. No hematuria. Musculoskeletal: No myalgias. No arthralgias. Neurologic: No headaches. No dizziness. No lightheadedness. Skin: No rash. No change in color. Psychiatric: No depression. No anxiety. PFSH PFSH Home Medications acyclovir 200 mg PO DAILY 07/18/19 [History Last Taken Unknown] sulfamethoxazole-trimethoprim 1 tab PO BID #14 tab 07/18/19 [Rx Last Taken Unknown] sulfamethoxazole-trimethoprim [Bactrim DS] 1 tab PO BID #14 tab 07/21/21 [Rx Last Taken Unknown] Allergy/AdvReac Type Severity Reaction Status Date / Time cefuroxime axetil Allergy Hives Verified 07/21/21 20:28 [From Ceftin] pseudoephedrine HCl Allergy Other Verified 07/21/21 20:28 [From Sudafed] Social History Smoking Status: Current every day smoker EXAM Physical Exam Narrative Exam Narrative: Afebrile. Vital signs noted. HEENT: Normocephalic. Atraumatic. PERRL, EOMI. Neck soft and supple. No point tenderness or step off. No mastoid tenderness or erythema. TM erythematous on left. Cardiovascular: Regular rate and rhythm. No murmurs, rubs, or gallops appreciated. Respiratory: No tachypnea. Lungs clear to auscultation bilaterally. Gastrointestinal: Abdomen soft, nontender, with normoactive bowel sounds. No rebound or guarding. Neurological: Awake. Alert. Nonfocal, nonlateralizing. Skin: No rash. Normal color. No pallor. Musculoskeletal: No pedal edema. Full range of motion extremities. Const Vital Signs: 07/21/21 20:26 Temperature 98.4 F Temperature Source Temporal Pulse Rate 96 Respiratory Rate 18 Blood Pressure 101/58 L Blood Pressure Mean 72 Pulse Ox 98 Oxygen Delivery Method Room Air MDM MDM MDM Narrative Medical decision making narrative: Patient cannot recall what medication she gets when she has an ear infection. She states she has multiple allergies in the past she has received Bactrim. She was given her first dose of medication here in the emergency department and a prescription written for the next week. She will take [id number] analgesics. Smoking cessation was discussed. She will follow up with her primary care provider. Disposition is discharged home in stable condition. Return instructions were reviewed. Discharge Plan Triage Chief Complaint: Ear Problem ED Provider: Chago mAin Dx/Rx/DC Orders Instructions: ED Otitis Media Antibiotic ... Prescriptions: New sulfamethoxazole-trimethoprim [Bactrim DS] 800-160 mg tablet 1 tab PO BID Qty: 14 RF: 0 No Action acyclovir 200 MG capsule 200 mg PO DAILY RF: 0 sulfamethoxazole-trimethoprim 1 TABLET tablet 1 tab PO BID Qty: 14 RF: 0 Primary Care Provider: Care Physician,No Primary Referrals: Care Physician,No Primary [Primary Care Provider] - Disposition Disposition: Home, Self Care
[2021-07-21] MEDS: Smz/Tmp Ds Tablet 1 TABLET PO (21:15)
== END 2021-07-21 21:18 | disposition home or self-care (01) ==
PROVIDERS: Emergency Provider Emergency Medicine
DX: H92.02 Otalgia, left ear (principal); F17.200 Nicotine dependence, unspecified, uncomplicated
CPT/HCPCS: 99283

== ENCOUNTER 2021-11-08 18:06 | Emergency (ER) | payer MEDICAID, SELFPAY ==
[2021-11-08 18:06] VITALS: BP 97/71; PULSE 72; RESP 18; TEMP 36.3; O2SAT 96; BMI 18.8
--- NOTE | 2021-11-08 19:08 | EX.ED.DYSGE1 ---
HPI History of Present Illness Chief Complaint: Cold Sx Narrative Narrative: Patient presents with sinus problems over the last 2 to 3 days. She states that she can smell infection. She denies any fevers or chills. No sinus pain or pressure but just states that she smells as if she has had an infection in her sinuses. She states I can get rid of the smell. She has occasional cough but she is a smoker. She has had problems with sinusitis in the past. She has not been vaccinated against Covid. PFSH PFS Home Medications azithromycin [Zithromax TRI-ARTIE] 500 mg PO DAILY 3 Days #3 tab 11/08/21 [Rx Last Taken Unknown] Allergy/AdvReac Type Severity Reaction Status Date / Time cefuroxime axetil Allergy Hives Verified 11/08/21 18:06 [From Ceftin] pseudoephedrine HCl Allergy Other Verified 11/08/21 18:06 [From Sudafed] Social History Smoking Status: Current every day smoker tobacco type: cigarettes ROS ROS ED ROS Narrative Constitutional: No fever, no chills. HEENT: No sore throat. No neck pain. No loss of vision. No rhinorrhea. Smells infection on sinuses. Cardiovascular: No chest pain. No palpitations. No pedal edema. Respiratory: Occasional cough, no shortness of breath. Abdominal: No abdominal pain. No nausea. No vomiting. Genitourinary: No dysuria. No hematuria. Musculoskeletal: No myalgias. No arthralgias. Neurologic: No headaches. No dizziness. No lightheadedness. Skin: No rash. No change in color. Psychiatric: No depression. No anxiety. EXAM Physical Exam Narrative Exam Narrative: Afebrile. Vital signs noted. HEENT: Normocephalic. Atraumatic. PERRL, EOMI. Neck soft and supple. No point tenderness or step off. No tenderness to percussion of sinuses. Cardiovascular: Regular rate and rhythm. No murmurs, rubs, or gallops appreciated. Respiratory: No tachypnea. Lungs clear to auscultation bilaterally. Gastrointestinal: Abdomen soft, nontender, with normoactive bowel sounds. No rebound or guarding. Neurological: Awake. Alert. Nonfocal, nonlateralizing. Skin: No rash. Normal color. No pallor. Musculoskeletal: No pedal edema. Full range of motion extremities. Const Vital Signs: 11/08/21 18:06 11/08/21 18:34 Temperature 97.3 F L Temperature Source Temporal Pulse Rate 72 Respiratory Rate 18 Respiratory Effort Normal Non-Labored Respiratory Pattern Normal Blood Pressure 97/71 Blood Pressure Mean 79 Pulse Ox 96 Oxygen Delivery Method Room Air MDM MDM MDM Narrative Medical decision making narrative: Patient's pulse ox is 96% on room air. She was swabbed for COVID-19 with results pending. This was a routine swab. She was given a prescription for an azithromycin Z-Artie. She will continue her Mucinex, and take an [id number]-[id number] decongestant as needed. She will also use nasal steroids as needed. I feel she be discharged safely home with follow-up. Return instructions were reviewed. Disposition is discharged home in stable condition. Discharge Plan Triage Chief Complaint: Cold Sx ED Provider: Chago Amin Dx/Rx/DC Orders Clinical Impression: URI (upper respiratory infection), Sinusitis, Suspected COVID-19 virus infection Instructions: COVID-19 and the Flu: What's the Difference?, ED Sinusitis (Antibiotic Treatment) Prescriptions: New azithromycin [Zithromax TRI-ARTIE] 500 mg tablet 500 mg PO DAILY 3 Days Qty: 3 RF: 0 Primary Care Provider: Care Physician,No Primary Referrals: Chester Vera DO [STAFF PHYSICIAN] - 11/15/21 Care Physician,No Primary [Primary Care Provider] - Disposition Disposition: Home, Self Care
[2021-11-08 19:22] VITALS: RESP 18; O2SAT 98
--- NOTE | 2021-11-09 19:25 | ED.RN ---
PATIENT CALLED IN ASKING ABOUT TEST RESULTS. PATIENT MADE AWARE OF TESTS RESULTS
== END 2021-11-08 19:23 | disposition home or self-care (01) ==
PROVIDERS: Emergency Provider Emergency Medicine
DX: U07.1 COVID-19 (principal); J06.9 Acute upper respiratory infection, unspecified; J32.9 Chronic sinusitis, unspecified; F17.210 Nicotine dependence, cigarettes, uncomplicated
CPT/HCPCS: 87426; 99282

== ENCOUNTER 2024-07-04 12:54 | Emergency (ER) | payer MEDICAID, SELFPAY ==
[2024-07-04 12:55] VITALS: BP 110/84; PULSE 100; RESP 16; TEMP 36.1; O2SAT 98; BMI 19.7
--- NOTE | 2024-07-04 14:30 | RAD_ITS ---
STUDY: X-RAY - RIGHT FOOT CLINICAL: Female, 28 years old. Medial foot pain following injury. TECHNIQUE: 3 view(s) of the foot. COMPARISON: None. FINDINGS: Normal talus, calcaneus, and tarsal bones. Normal visualized subtalar, talonavicular, calcaneocuboid, tarsal and tarsometatarsal articulations. Normal metatarsi. Normal metatarsophalangeal joint of the great toe. Normal tibial and fibular sesamoid bones. Normal interphalangeal joint of the great toe. Normal phalanges of the great toe. Normal second through fifth metatarsophalangeal joints. Normal interphalangeal joints and phalanges of the lesser toes. The soft tissue structures are unremarkable. RAD/Foot min 3 Views IMPRESSION: Normal x-ray examination of the foot. Electronically Signed: Neo Lunsford MD at 14:44 EDT ,
--- NOTE | 2024-07-04 16:06 | ED.VIS.LOWEX ---
HPI History of Present Illness Chief Complaint: Lower Extremity Injury Informant: patient Narrative Narrative: 28-year-old female states that last evening around 1900 hrs. she was walking in flip-flops. States that she started to fall foot went into a hole and she fell forward causing forced plantarflexion as she fell forward. She has pain along the medial aspect of the first metatarsal. Pain with movement of the toes. She notes she is having to walk on the outside of her foot for comfort. She wonders if she broke her foot. PFSH PFS Medical History no medical history Home Medications ?Medication ?Instructions ?Recorded ?Last Taken ?Type azithromycin 500 mg tablet 500 mg PO DAILY 3 days #3 tabs 11/08/21 Unknown Rx (Zithromax TRI-ARTIE) Allergy/AdvReac Type Severity Reaction Status Date / Time cefuroxime axetil (From Allergy Hives Verified 07/04/24 12:55 Ceftin) pseudoephedrine HCl (From Allergy Other Verified 07/04/24 12:55 Sudafed) Social History Smoking Status: Current every day smoker tobacco type: cigarettes ROS ROS ED Constitutional Constitutional ED: Denies chills, fever(s) or weight loss Eyes Eyes: Denies change in vision or diplopia ENT ENT ED: Denies ear pain, rhinorrhea or sore throat Cardiovascular Cardiovascular: Denies chest pain, orthopnea, palpitations or racing heartbeat Respiratory/Chest Respiratory/Chest: Denies cough, dyspnea or orthopnea Gastrointestinal Gastrointestinal: Denies abdominal pain, diarrhea, nausea or vomiting Genitourinary Genitourinary ED: Denies dysuria, hematuria or urinary frequency Musculoskeletal Musculoskeletal: Reports other Details: See history of present illness ; Denies arthralgias, back pain, myalgias or neck pain Integumentary Denies abscess or rash Neurologic Neurologic: Denies headache(s) or weakness Psychiatric Psychiatric: Denies anxiety, depression, suicidal ideation or suicidal thoughts Endocrine Endocrinology: Denies polydipsia, polyphagia or polyuria Allergic/Immunologic Allergic/Immunologic ED: Denies mouth swelling, tongue swelling or urticaria EXAM Physical Exam Const Vital Signs: 07/04/24 12:55 07/04/24 16:14 Temperature 97 F L 98.0 F Temperature Source Temporal Pulse Rate 100 81 Respiratory Rate 16 18 Blood Pressure 110/84 H 104/69 Blood Pressure Mean 92 80 Pulse Ox 98 100 Oxygen Delivery Method Room Air Positive well nourished and well developed General Appearance ED: well developed HEENT Reports normocephalic, head/scalp atraumatic and moist mucous membranes Eyes PERRL and EOMs intact bilaterally Neck no lymphadenopathy, supple and no JVD Resp normal respiratory effort and clear to auscultation bilaterally Cardio regular rate, regular rhythm and no murmurs GI normal to inspection, nondistended, normoactive bowel sounds and non-tender Palpation: soft Back/Spine no CVA tenderness and normal ROM Extremity Extremity Narrative: Tenderness along the first metatarsal. Pain with movement of the digits. There is an abrasion over the mid medial aspect of the foot along the first metatarsal. No ankle tenderness or tibial and fibula tenderness. Calf nontender. Achilles palpates and functionally is intact. General Extremety ED: Negative for edema General Extremity: Negative for edema Neuro oriented x3 and CN's II-XII intact bilaterally Sensorium / Orientation: alert Motor Exam: strength 5/5 throughout Psych mental status grossly normal Mood & Affect: Negative for depressed or tearful Skin no rashes or lesions noted and no wounds MDM MDM MDM Narrative Medical decision making narrative: Differential diagnosis includes but not limited to sprain strain fracture cellulitis abrasion My independent interpretation the plain films of the right foot is no acute fracture. Patient will be placed in [place] wrap recommendations for ice Tylenol and Motrin. Follow-up with podiatry in 14 days if not improved. Local wound care to the abrasion discussed. Patient attempted to ambulate would prefer crutches History & Record Review Discussion w/independent historian: Patient Radiography Diagnostic Testing: Clinical Impression(s) from Imaging Studies Foot X-Ray 07/04/24 14:30 IMPRESSION: Normal x-ray examination of the foot. Electronically Signed: Neo Lunsford MD at 14:44 EDT , Discharge Plan Triage Chief Complaint: Lower Extremity Injury ED Provider: Osmani Bravo Dx/Rx/DC Orders Clinical Impression: Foot sprain, Acute foot pain, Fall Instructions: ED Foot Sprain Prescriptions: No Action azithromycin [Zithromax TRI-ARTIE] 500 mg tablet 500 mg PO DAILY 3 Days Qty: 3 0RF Primary Care Provider: Care Physician,No Primary Referrals: Osmani Woodward DPM [Med Staff - Active Staff] - 10-14 Days if not better Care Physician,No Primary [Primary Care Provider] - Print Language: Icelandic Disposition Disposition: Home, Self Care
[2024-07-04 16:14] VITALS: BP 104/69; PULSE 81; RESP 18; TEMP 36.7; O2SAT 100
== END 2024-07-04 16:43 | disposition home or self-care (01) ==
LOC: ED 16:12
PROVIDERS: Emergency Provider Emergency Medicine; Visit Provider Emergency Medicine
DX: S93.601A Unspecified sprain of right foot, initial encounter (principal); F17.210 Nicotine dependence, cigarettes, uncomplicated; W17.2XXA Fall into hole, initial encounter
CPT/HCPCS: 73630; 99283